=== PATIENT | female | born 1945 | race African-American/Black ===

== ENCOUNTER 2016-05-15 15:13 | Emergency (ER) | payer MEDICARE ==
[2016-05-15] MEDS ORDERED: Phenytoin Sodium 100 MG/2 ML VIAL ONE ×2 (15:47→15:49)
[2016-05-15 16:01] LABS: PTT 33.7 SEC (22.9-36.1); Prothrombin Time 24.5 SEC (12.0-14.7)
[2016-05-15 16:06] LABS: Glucose, Urine (Dipstick) 100 mg/dL (Negative); Ketone, Urine Negative (Negative); Nitrite Negative (Negative); Protein, Urine (Dipstick) 100 mg/dL (Neg-Trace)
[2016-05-15 16:07] LABS: Bacteria/HPF Rare-Few HPF (None Seen); Bilirubin Large (Negative); Blood, Urine Moderate (Negative); Squamous Epithelial 0-3 HPF (0-3); WBC/HPF 0-3 HPF (0-3); Yeast-All Forms Rare HPF (None Seen)
[2016-05-15 16:12] LABS: ALT (SGPT) 134 U/L (0-55); AST (SGOT) 215 U/L (5-34); Alkaline Phosphatase 1026 U/L (40-150); Anion Gap 20 mmol/L (10-20); BUN (Urea Nitrogen) 16 mg/dL (9.8-20.1); Bilirubin, Total 13.4 mg/dL (0.2-1.2); Calc. Creatinine Clearance 0 mL/min (70-130); Calcium 8.1 mg/dL (7.8-10.44); Carbon Dioxide 22 mmol/L (23-31); Chloride 96 mmol/L (98-107); Estimated GFR-MDRD 77; Globulin 3.3 g/dL (2.4-3.5); Protein, Total 6.3 g/dL (5.8-8.1)
[2016-05-15 16:14] LABS: Troponin I 0.024 ng/mL (< 0.028)
[2016-05-15 16:16] LABS: #Basophils 0.1 thou/uL (0.0-0.2); #Lymphocytes 0.5 thou/uL (1.20-3.40); #Monocytes 1.1 thou/uL (0.11-0.59); #Neutrophils 10.8 thou/uL (1.40-6.50); %Basophils 0.7 % (0.0-1.0); %Monocytes 8.5 % (0.0-10.0); Anisocytosis SLIGHT = 6-15 cells (100X) (0-5/hpf); Hematocrit 29.8 % (36.0-47.0); Hypochromia SLIGHT = 6-15 cells (100X) (0-5/hpf); Mean Platelet Volume 6.6 fL (7.4-10.4); Red Blood Cell (RBC) Count 3.49 mill/uL (4.20-5.40); Target Cells MODERATE= 6-15 cells (100X) (0-1/hpf); Tear Drops SLIGHT = 2-5 cells (100X) (0-1/hpf); White Blood Cell (WBC) Count 12.4 thou/uL (4.8-10.8)
[2016-05-15] MEDS ORDERED: Lorazepam 2 MG/ML VIAL ONE (16:23)
[2016-05-15] MEDS ORDERED: Fentanyl 100 MCG/2 ML VIAL ONE (17:03)
--- NOTE | 2016-05-15 18:23 | ERRECORD ---
[facility] EMERGENCY RECORD HPI SEIZURE (15:39 JPIP) CHIEF COMPLAINT: Patient presents for evaluation of seizure, Patient presents for evaluation of Family states patient yelled and became unresponsive with "jerking seizure like activity". HISTORIAN: History provided by patient's family, Additional history obtained from EMS. LOCATION: No localizing symptoms. QUALITY: Seizure quality described as grand-mal, single episode. TIME COURSE: Sudden onset of symptoms, just prior to arrival, Symptoms are improving. ASSOCIATED WITH: No associated alcohol use, No associated drug use, No associated fever, No associated headache, No associated trauma, +metastatic CA Patient and family states her oncologist explained there was nothing to do for her cancer and wanted to put her on hospice for end of life care. EXACERBATED BY: Patient's condition exacerbated by nothing. RELIEVED BY: Patient's condition relieved by time. E/M CAVEAT: Emergency room caveat invoked due to, postictal state. ROS (15:41 JPIP) CONSTITUTIONAL: Historian denies fever, reports lethargy, reports malaise. EYES: Historian denies eye pain. ENT: Historian denies sore throat. CARDIOVASCULAR: Historian denies chest pain. RESPIRATORY: Historian denies cough, denies shortness of breath. MUSCULOSKELETAL: Historian denies arthralgias, denies injury, denies myalgias. SKIN: Historian denies rash, denies skin changes, denies skin lesions. NEUROLOGIC: Historian reports confusion, post ictal. NOTES: All systems reviewed, negative except as described above. PAST MEDICAL HISTORY MEDICAL HISTORY: Notes: Scleral icterus, oxygen dependent, hyperlipidemia, HTN, osteoporosis, lung cancer that metastasized to liver. Verified on 05/15/16. (15:28 HASA) FEMALE SURGICAL HISTORY: right breast biopsy, appendectomy, tubal ligation. Verified on 05/15/16. (15:28 HASA) PSYCHIATRIC HISTORY: Notes: No psychiatric history. Verified on 05/15/16. (15:28 HASA) SOCIAL HISTORY: Social History includes Former smoker of cigarettes for >50 years. Denies alcohol use. Denies drug use. Verified on 05/15/16. (15:28 HASA) NOTES: Nursing records reviewed, Old chart reviewed, Medication list reviewed. (15:44 JPIP) KNOWN ALLERGIES &a-1R&a+25V*p+0X*d1416G*c202B*c15G*c2P*p-0X&a-25V&a+1R Name: Beatriz Garcia : 1945 F70 MedRec: [id number] AcctNum: [id number] Prepared: SunMay 15, 2016 18:11 by Interface Page 1 of 4 pMD [facility] EMERGENCY RECORD No Known Allergies CURRENT MEDICATIONS isosorbide mononitrate: TABLET, EXTENDED RELEASE 24 HR : Strength - 60 mg : ORAL Patient Dose: 60 mg Oral once a day. (15:22 HASA) simvastatin: TABLET : Strength - 10 mg : ORAL Patient Dose: 10 mg Oral once a day (in the evening). (15: HASA) aspirin: TABLET : Strength - 81 mg : ORAL Patient Dose: 81 mg Oral once a day. (15: HASA) Tylenol-Codeine #3: TABLET : Strength - 300 mg-30 mg : ORAL Patient Dose: 1 tab(s) Oral every 6 hours PRN. (15:22 HASA) Ventolin HFA: HFA AEROSOL WITH ADAPTER (GRAM) : Strength - 90 mcg : INHALATION Patient Dose: 2 puff(s) Inhaler every 4 hours prn. (15:22 HASA) triamterene-hydrochlorothiazid: CAPSULE : Strength - 37.5 mg-25 mg : ORAL Patient Dose: 1 tab(s) Oral once a day. (15:23 HASA) doxycycline hyclate: CAPSULE : Strength - 100 mg : ORAL Patient Dose: 100 mg Oral 2 times a day. (15:23 HASA) Atarax: TABLET : Strength - 25 mg : ORAL Patient Dose: 25 mg Oral 4 times a day. (15:24 HASA) methylPREDNISolone: TABLET : Strength - 4 mg : ORAL Patient Dose: 4 mg Oral once a day. (15:25 HASA) VITAL SIGNS VITAL SIGNS: BP: 140/70, Pulse: 133, Resp: 36, Temp: 99.5 (Oral), Pain: 0, O2 sat: 94 on Room Air, Time: 05/15/2016 15:17. (15:17 HASA) Pulse: 123, Resp: 17 (Non-Labored), O2 sat: 99 on 2L Oxygen, Time: 05/15/2016 15:28. (15:28 HASA) BP: 147/84, Pulse: 126, Resp: 16, Pain: utr, O2 sat: 98 on 2L Oxygen, Time: 05/15/2016 16:00. (16:00 AHOO) BP: 126/56, Pulse: 123, Resp: 17, Pain: 5, O2 sat: 100 on 2L Oxygen, Time: 05/15/2016 16:17. (16:17 HASA) BP: 114/64, Pulse: 124, Resp: 12, O2 sat: 100 on 2L Oxygen, Time: 05/15/2016 17:00. (17:00 HASA) BP: 112/61, Pulse: 124, Resp: 18 (Non-Labored), O2 sat: 100 on 2L Oxygen, Time: 05/15/2016 17:45. (17:45 SFER) PHYSICAL EXAM (15:42 JPIP) CONSTITUTIONAL: Vital signs reviewed, Patient afebrile, Pulse, tachycardic, Blood pressure normal, &a-1R&a+25V*p+0X*p0407I*c202B*c15G*c2P*p-0X&a-25V&a+1R Name: Beatriz Garcia : 1945 F70 MedRec: [id number] AcctNum: [id number] Prepared: SunMay 15, 2016 18:11 by Interface Page 2 of 4 pMD [facility] EMERGENCY RECORD Respiratory rate normal, Patient, oriented to person and place, patient appears to be post ictal. HEAD: Head exam included findings of head atraumatic, normocephalic. EYES: Eye exam included findings of eyelids normal to inspection, Conjunctiva normal, Sclera, icteric, no periorbital ecchymosis, no periorbital edema, no periorbital erythema. RESPIRATORY CHEST: Respiratory exam included findings of no respiratory distress, Breath sounds clear, No wheezing, No rales, No rhonchi, Breath sounds not absent, Breath sounds not diminished. CARDIOVASCULAR: Cardiovascular exam included findings of, rate tachycardic, rhythm regular. ABDOMEN FEMALE: Abdominal exam included findings of abdomen nontender, Liver normal, Spleen normal, no distension, no mass, no pulsatile masses, no peritoneal signs, no rigidity, no guarding, no rebound. BACK: no costovertebral angle tenderness. UPPER EXTREMITY: Upper extremity exam included findings of inspection normal, Range of motion normal. LOWER EXTREMITY: Lower extremity exam included findings of inspection normal, Range of motion normal. NEURO: [place] coma scale, Eye opening: (3) To speech, Verbal: (4) - Confused/disoriented, Motor: (6) - Obeys commands/Spontaneous, GCS Total: 13, Neuro exam findings include patient oriented to, person, place, no focal motor deficits. SKIN: Skin exam included findings of skin warm, dry, and normal in color. LYMPHATIC: Lymphatic exam included findings of cervical nodes normal, Submandibular normal. PSYCHIATRIC: Psychiatric exam included findings of patient oriented to, person, place. EKG INTERPRETATION (16:16 JPIP) MONITOR STRIP: helper maintenance cleaning strip interpreted by Emergency Department Physician, Monitor strip shows sinus tachycardia, with no ectopics. 12 LEAD EKG INTERPRETATION: 12 lead EKG interpreted by Emergency Department Physician at time of study, 12 lead EKG shows, sinus tachycardia, Rate (beats per minute): 125, with no ectopics, Conduction normal, ST segments normal, T waves normal, Clinical impression:, other dysrhythmia sinus tachycardia. RADIOLOGYINTERPRETATION (16:08 JPIP) HEAD: Head CT negative, without contrast, no bleed, no mass, no acute ischemic stroke, no acute changes. TACTICAL RESPONSE GROUP OFFICER: Preliminary review of CT scans by, Radiologist. MEDICATION ADMINISTRATION SUMMARY &a-1R&a+25V*p+0X*g3287W*c202B*c15G*c2P*p-0X&a-25V&a+1R Name: Jose Beatriz W : 1945 F70 MedRec: [id number] AcctNum: [id number] Prepared: SunMay 15, 2016 18:11 by Interface Page 3 of 4 pMD [facility] EMERGENCY RECORD Drug Name: fentaNYL (PF) injection, Dose Ordered: 100 mcg, Route: IV Push, Status: Given, Time: 17:07 05/15/2016, Drug Name: Ativan injection, Dose Ordered: 1 mg, Route: IV Push, Status: Given, Time: 16:28 05/15/2016, Drug Name: Normal Saline, Dose Ordered: 1000 mL/hr, Route: IV Fluid Infusion, Status: Given, Time: 15:30 05/15/2016, Detailed record available in Medication Service section. DOCTOR NOTES RE-EVALUATION: The patient's condition has improved, Patients mental status is improving with time. (15:48 JPIP) TEXT: Long discussion with patient and family regarding findings and possible metastasis to the brain. Patient has stated she does not want any more chemo. She states she is to see hospice tomorrow to begin care. Family present during discussions. All questions answered. Patient wants to go home, "till the end of my time on earth". Patient and family are aware she can come back to the ED anytime she feels she needs to. (17:38 JPIP) PROBLEM LIST No recorded problems DIAGNOSIS (17:45 JPIP) FINAL: PRIMARY: Febrile Seizure - simple, ADDITIONAL: end stage metastatic cancer, liver failure. PRESCRIPTION (17:44 JPIP) Ativan oral: TABLET : 1 mg : ORAL : Quantity: 1 Unit: tab(s) Route: ORAL Schedule: 2 times a day (before meals) Dispense: 30 May substitute. Refills: No Refills . NOTES: Take as needed for stress and anxiety No refills. DISPOSITION PATIENT: Disposition Type: Discharge, Disposition: *Discharge Home, Condition: Serious. (17:45 JPIP) Patient left the department. (18:09 HASA) Johnson: AHOO=ANTELMO Martin, August HASA=THOMAS Coates Lynne JPIP=DO Weldon Joseph SFER=CECELIA Egan, [place] &a-1R&a+25V*p+0X*y9677V*c202B*c15G*c2P*p-0X&a-25V&a+1R Name: Beatriz Garcia : 1945 F70 MedRec: [id number] AcctNum: [id number] Prepared: SunMay 15, 2016 18:11 by Interface Page 4 of 4 pMD MTDD
--- NOTE | 2016-05-15 18:27 | PICIS ---
[facility] EMERGENCY RECORD TRIAGE (SunMay 15, 2016 15:19 HASA) PATIENT: NAME: Beatriz Garcia, AGE: 70, GENDER: female, : Sun1945, TIME OF GREET: SunMay 15, 2016 15:13, PREFERRED LANGUAGE: Japanese, ETHNICITY: Not or , ECODE BILLING MAP: [facility], SSN: [id number], Zip Code: [address], KG WEIGHT: 51.71, PHONE: , , , PERSON ID: [id number], PAYMENT: [place] Medicare, PCP: MD Whitaker Kyle. (SunMay 15, 2016 15:19 HASA) COMPLAINT: AMS. (15:56 HASA) ADMISSION: URGENCY: 2 Emergent, ADMISSION SOURCE: Home, TRANSPORT: AMBULANCE - [facility], BED: TRIAGE. (SunMay 15, 2016 15:19 HASA) SIRS SCORING: Heart Rate 110-139 (2), Temp range 96.8-101.1 (0), respiratory rate 12-24 (0), Latest WBC 3-14.9 (0), Mental status altered: yes (1), Total SIRS Score 3. (15:28 HASA) TRIAGE SCREENING: Patient denies suicidal ideation, Patient denies presence of domestic violence. (15:28 HASA) PROVIDERS: TRIAGE NURSE: GN. Edin (SunMay 15, 2016 15:19 HASA) VITAL SIGNS: BP 140/70, Pulse 133, Resp 36, Temp 99.5, (Oral), Pain 0, O2 Sat 94, on Room Air, Time 05/15/2016 15:17. (15:17 HASA) KNOWN ALLERGIES No Known Allergies CURRENT MEDICATIONS isosorbide mononitrate: TABLET, EXTENDED RELEASE 24 HR : Strength - 60 mg : ORAL Patient Dose: 60 mg Oral once a day. (15:22 HASA) simvastatin: TABLET : Strength - 10 mg : ORAL Patient Dose: 10 mg Oral once a day (in the evening). (15:22 HASA) aspirin: TABLET : Strength - 81 mg : ORAL Patient Dose: 81 mg Oral once a day. (15:22 HASA) Tylenol-Codeine #3: TABLET : Strength - 300 mg-30 mg : ORAL Patient Dose: 1 tab(s) Oral every 6 hours PRN. (15:22 HASA) Ventolin HFA: HFA AEROSOL WITH ADAPTER (GRAM) : Strength - 90 mcg : INHALATION Patient Dose: 2 puff(s) Inhaler every 4 hours prn. (15:22 HASA) triamterene-hydrochlorothiazid: CAPSULE : Strength - 37.5 mg-25 mg : ORAL Patient Dose: 1 tab(s) Oral once a day. (15:23 HASA) doxycycline hyclate: CAPSULE : Strength - 100 mg : ORAL Patient Dose: 100 mg Oral 2 times a day. (15:23 HASA) &a-1R&a+25V*p+0X*b8577Q*c202B*c15G*c2P*p-0X&a-25V&a+1R Name: Beatriz Garcia : 1945 F70 MedRec: [id number] AcctNum: [id number] Prepared: SunMay 15, 2016 18:16 by Interface Page 1 of 15 pMD [facility] EMERGENCY RECORD Atarax: TABLET : Strength - 25 mg : ORAL Patient Dose: 25 mg Oral 4 times a day. (15:24 HASA) methylPREDNISolone: TABLET : Strength - 4 mg : ORAL Patient Dose: 4 mg Oral once a day. (15:25 HASA) VITAL SIGNS VITAL SIGNS: BP: 140/70, Pulse: 133, Resp: 36, Temp: 99.5 (Oral), Pain: 0, O2 sat: 94 on Room Air, Time: 05/15/2016 15:17. (15:17 HASA) Pulse: 123, Resp: 17 (Non-Labored), O2 sat: 99 on 2L Oxygen, Time: 05/15/2016 15:28. (15:28 HASA) BP: 147/84, Pulse: 126, Resp: 16, Pain: utr, O2 sat: 98 on 2L Oxygen, Time: 05/15/2016 16:00. (16:00 OO) BP: 126/56, Pulse: 123, Resp: 17, Pain: 5, O2 sat: 100 on 2L Oxygen, Time: 05/15/2016 16:17. (16:17 HASA) BP: 114/64, Pulse: 124, Resp: 12, O2 sat: 100 on 2L Oxygen, Time: 05/15/2016 17:00. (17:00 HASA) BP: 112/61, Pulse: 124, Resp: 18 (Non-Labored), O2 sat: 100 on 2L Oxygen, Time: 05/15/2016 17:45. (17:45 SFER) NURSING ASSESSMENT: FALL RISK (17:18 HASA) FALL RISK: Fall risk assessment findings include: History of falls (5), Bed rest greater than 2 days (5), Use of level of consciousness altering agents with mentation or cognitive changes (3), No change in blood pressure (0), Sensory deficits (1), Impaired mobility (3), Neurologic diagnosis (3), No elimination problems (0), Confusion (3), Total score 23, Fall risk. NURSING ASSESSMENT: NEURO (15:56 HASA) GCS: (6) Obeying command:, (4) Confused conversation:, (3) Eye opening in response to any speech, Result: 13. CONSTITUTIONAL: Patient arrives, via stretcher, via [facility], Unsteady gait, Lift to cart, History obtained from patient, Patient appears, in distress due to pain, restless, uncomfortable, Patient cooperative, Patient alert, Oriented to person, place and time, Skin warm, Skin dry, Skin normal in color, Mucous membranes pink, Mucous membranes moist, Patient is well-groomed, Patient complains of AMS, Patient arrives to the ER via EMS after seizure-like activity. Family states patient was sitting in chair and slumped over. Patient was unresponsive for an unknown amount of time and was having "jerking-like" motions. Denies pain. Patient appears to be in pain. Hx of lung cancer that has metastasized to liver. PAIN: Patient rates pain as 0 out of 10. NEURO: Speech, incoherent, slow, GCS:, Eye opening: (3) To speech, Verbal: (4) - Confused/disoriented, Motor: (6) - Obeys commands/Spontaneous, GCS Total: 13, Hand grasps equal, Upper extremity &a-1R&a+25V*p+0X*g4623R*c202B*c15G*c2P*p-0X&a-25V&a+1R Name: Beatriz Garcia : 1945 F70 MedRec: [id number] AcctNum: [id number] Prepared: SunMay 15, 2016 18:16 by Interface Page 2 of 15 pMD [facility] EMERGENCY RECORD strength, weak on the left, weak on the right, Lower extremity strength, weak on the left, weak on the right, Foot press equal, no associated fever, Associated with loss of consciousness, less than 1 minute, Associated with seizure, involving the entire body, witnessed, Associated with weakness. ENT: Ear assessment findings include ear normal to inspection, Nasal assessment findings include nose normal to inspection, Sinuses normal, Nasal mucosa normal, Mouth and throat assessment findings include mouth inspection normal, Uvula normal, Tonsils normal, Mucous membranes pink, and moist, Able to swallow, Patient, able to speak short phrases, Confused speech, no associated fever. SAFETY: Side rails up, Cart/Stretcher in lowest position, Family at bedside, Call light within reach, Hospital ID band on. NURSING ASSESSMENT: SKIN (17:19 HASA) SKIN: Skin assessment findings include skin warm, Skin dry, Skin normal in color, Inspection findings include: No pressure ulcer to the shoulder, Inspection findings include no pressure ulcer to the elbow, Inspection findings include no pressure ulcers to the hip, Inspection findings include no pressure ulcer to the sacrum, Inspection findings include no pressure ulcer to the heel, Inspection findings include no pressure ulcer, Inspection findings include no pressure ulcer. SAFETY: Side rails up, Cart/Stretcher in lowest position, Family at bedside, Call light within reach, Hospital ID band on. NURSING PROCEDURE: BEDSIDE SIRS TESTING (17:18 HASA) SCORES: Heart Rate 110-139 (2), Temp range 96.8-101.1 (0), respiratory rate 12-24 (0), Latest WBC 3-14.9 (0), Mental status altered: yes (1), Total SIRS Score 3, Infection or Suspected Infection: No. NURSING PROCEDURE: TURF FARMER (15:31 HASA) TURF FARMER: Patient placed on alarm security or surveillance monitor. FOLLOW-UP: After procedure, alarms set and on, After procedure, patient tolerating monitoring. SAFETY: Side rails up, Cart/Stretcher in lowest position, Family at bedside, Call light within reach, Hospital ID band on. NURSING PROCEDURE: DISCHARGE NOTE (18:02 HASA) DISCHARGE: Patient discharged to home, in a wheelchair, family driving, accompanied by other family member, Summary of Care printed/ provided, Patient requested and was provided an electronic copy of Discharge Instructions, Transition record given to patient, Discharge instructions given to patient, Prescriptions given and instructions on side effects given, Medication reconciliation form given, Above person(s) verbalized understanding of discharge &a-1R&a+25V*p+0X*d1716Z*c202B*c15G*c2P*p-0X&a-25V&a+1R Name: Beatriz Garcia : 1945 F70 MedRec: [id number] AcctNum: [id number] Prepared: SunMay 15, 2016 18:16 by Interface Page 3 of 15 D [facility] EMERGENCY RECORD instructions and follow-up care, Notes: Patient instructed on discharge instructions. Patient instructed on proper medication usage. Patient instructed to follow-up with PCP. SAFETY: Side rails up, Cart/Stretcher in lowest position, Family at bedside, Call light within reach, Hospital ID band on. NURSING PROCEDURE: EKG CHART (16:09 HASA) PATIENT IDENTIFIER: Patient actively involved in identification process, Patient's identity verified by patient stating name, Patient's identity verified by patient stating date. EKG: EKG indicated for Tachycardia/AMS, 12 lead EKG performed on the left chest, done by CECELIA Batista, first EKG. FOLLOW-UP: After procedure, EKG for interpretation given to Dr. WELDON. SAFETY: Side rails up, Cart/Stretcher in lowest position, Family at bedside, Call light within reach, Hospital ID band on. NURSING PROCEDURE: IV PATIENT IDENITIFIER: Patient actively involved in identification process, Patient's identity verified by patient stating name, Patient's identity verified by patient stating date, Patient's identity verified by hospital ID bracelet, Patient's identity verified by family member. (17:00 AHOO) IV SITE 1: IV therapy indicated for hydration, IV therapy indicated for medication administration, IV established, to the left antecubital, using a 20 gauge catheter, Saline lock established, Notes: ESTABLISHED SCHEME TECHNICIAN BY EMS. (15:20 HASA) IV therapy indicated for hydration, IV therapy indicated for medication administration, IV established, to the left wrist, using a 22 gauge catheter, in two attempts, Saline lock established, Flushed with normal saline (mls): 10, Notes: ESTABLISHED SCHEME TECHNICIAN BY AUGUST, APPAREL STOCK CHECKER. (16:55 HASA) IV therapy indicated for medication administration, IV established, to the left hand, using a 22 gauge catheter, in two attempts, Saline lock established, Flushed with normal saline (mls): 10ML. (17:00 AHOO) FOLLOW-UP SITE 1: After procedure, sterile transparent dressing applied. (15:20 HASA) After procedure, 2x2 dressing applied, IV discontinued, catheter intact, Notes: IV discontinued due to catheter being pinched. IV discontinued by August, APPAREL STOCK CHECKER. (15:20 HASA) NURSING PROCEDURE: NURSE NOTES NURSES NOTES: Pillow given to patient, Warm blanket given to patient, Patient re-positioned to semi-Webb's position, Patient re-positioned to right side lying position, with head of bed elevated, (degree) 15. (15:57 HASA) Notes: Patient resting in bed. Seizure precautions maintained. Patient moaning in pain. Medicating with fentanyl. Assisted patient in changing positions for comfortability. Lights off per request. &a-1R&a+25V*p+0X*u6300G*c202B*c15G*c2P*p-0X&a-25V&a+1R Name: Beatriz Garcia : 1945 F70 MedRec: [id number] AcctNum: [id number] Prepared: SunMay 15, 2016 18:16 by Interface Page 4 of 15 pMD [facility] EMERGENCY RECORD Family at bedside. (16:45 HASA) Notes: Seizure precautions initiated. Blankets placed along siderails. Monitors on. (15:28 HASA) NURSING PROCEDURE: OXYGEN THERAPY (15:20 HASA) PATIENT IDENTIFIER: Patient actively involved in identification process, Patient's identity verified by patient stating name, Patient's identity verified by patient stating date. OXYGEN THERAPY: Oxygen therapy indicated for desaturation, Oxygen saturation 92%, by adult/pediatric oxisensor, 2L oxygen given, via nasal cannula applied, Applied by CECELIA VITALE, via nasal cannula. FOLLOW-UP: After procedure, oxygen saturation 96%. SAFETY: Side rails up, Cart/Stretcher in lowest position, Family at bedside, Call light within reach, Hospital ID band on. NURSING PROCEDURE: POSITIONING (17:05 HASA) PATIENT IDENTIFIER: Patient actively involved in identification process, Patient's identity verified by patient stating name, Patient's identity verified by patient stating date. POSITIONING: Positioning indicated for patient with hypotension, Positioning indicated for Comfortability, Patient placed in dorsal recumbent position, Patient placed in semi-Webb's position, Patient placed in side lying position on the left, head of bed elevated, (degrees) 15. SAFETY: Side rails up, Cart/Stretcher in lowest position, Family at bedside, Call light within reach, Hospital ID band on. NURSING PROCEDURE: TRANSPORT TO TESTS PATIENT IDENTIFIER: Patient actively involved in identification process, Patient's identity verified by patient stating name, Patient's identity verified by patient stating date, Patient's identity verified by hospital ID bracelet, Patient's identity verified by family member. (15:52 AHOO) TRANSPORT TO TESTS: Patient transported to CT scan, via cart, Accompanied by x-ray reliability technician. (15:52 AHOO) FOLLOW-UP: After procedure, patient returned to emergency department. (16:00 AHOO) NURSING PROCEDURE: URINE COLLECTION (15:40 HASA) PATIENT IDENTIFIER: Patient actively involved in identification process, Patient's identity verified by patient stating name, Patient's identity verified by patient stating date. URINE COLLECTION FEMALE: Urine collected by straight cath, using an 8fr catheter kit, in one attempt, output amount (mL) 13, urine orange in color, and clear, Specimen collected, labeled in the presence of the patient and sent to lab, Specimen obtained for culture labeled in the presence of the patient and sent to lab. SAFETY: Side rails up, Cart/Stretcher in lowest position, Family &a-1R&a+25V*p+0X*z7839Q*c202B*c15G*c2P*p-0X&a-25V&a+1R Name: Jose, Beatriz W : 1945 F70 MedRec: [id number] AcctNum: [id number] Prepared: SunMay 15, 2016 18:16 by Interface Page 5 of 15 D [facility] EMERGENCY RECORD at bedside, Call light within reach, Hospital ID band on. ORDER DETAILS Order Name: Ammonia, Status: Active, Time: 16:19 05/15/2016, User: CLIFF, - Ordered for: DO Weldon Joseph, - Entered by: DO Weldon Joseph - SunMay 15, 2016 16:19, - Quantity: 1, Order Name: TURF FARMER ED, Status: Done, Time: 15:32 05/15/2016, User: SHENGA, - Ordered for: DO Weldon Joseph, - Entered by: THOMAS Coates Hannah - SunMay 15, 2016 15:31, - Quantity: 1, Order Name: Cardiac Profile w/CKMB & Troponin - I, Status: Active, Time: 15:30 05/15/2016, User: CLIFF, - Ordered for: DO Weldon Joseph, - Entered by: DO Weldon Joseph - SunMay 15, 2016 15:30, - Quantity: 1, Order Name: CATH STRAIGHT ED, Status: Done, Time: 15:44 05/15/2016, User: EDISON, - Ordered for: DO Weldon Joseph, - Entered by: THOMAS Coates Hannah - SunMay 15, 2016 15:34, - Quantity: 1, Order Name: CBC with Differential, Status: Active, Time: 15:26 05/15/2016, User: CLIFF, - Ordered for: DO Weldon Joseph, - Entered by: DO Weldon Joseph - SunMay 15, 2016 15:26, - Quantity: 1, Order Name: Comprehensive Metabolic Panel, Status: Active, Time: 15:26 05/15/2016, User: CLIFF, - Ordered for: DO Weldon Joseph, - Entered by: DO Weldon Joseph - SunMay 15, 2016 15:26, - Quantity: 1, Order Name: CT Brain WO Con, Status: Active, Time: 15:26 05/15/2016, User: CLIFF, - Ordered for: DO Weldon Joseph, - Entered by: DO Weldon Joseph - SunMay 15, 2016 15:26, - Quantity: 1, Order Name: EKG 12 Lead in Emergency Room, Status: Active, Time: 16:05 05/15/2016, User: CLIFF, - Ordered for: DO Weldon Joseph, - Entered by: DO Weldon Joseph - SunMay 15, 2016 16:05, - Quantity: 1, Order Name: ERRT Oxygen Usage ER, Status: Active, Time: 15:26 05/15/2016, User: CLIFF, - Ordered for: DO Weldon Joseph, - Entered by: DO Weldon Joseph - SunMay 15, 2016 15:26, - Quantity: 1, Order Name: ERRT Pulse Oximeter ER, Status: Active, Time: 15:26 &a-1R&a+25V*p+0X*j7584Z*c202B*c15G*c2P*p-0X&a-25V&a+1R Name: Beatriz Garcia : 1945 F70 MedRec: [id number] AcctNum: [id number] Prepared: SunMay 15, 2016 18:16 by Interface Page 6 of 15 pMD [facility] EMERGENCY RECORD 05/15/2016, User: CLIFF, - Ordered for: DO Weldon Joseph, - Entered by: DO Weldon Joseph - SunMay 15, 2016 15:26, - Quantity: 1, Order Name: Lactic Acid with repeat, Status: Canceled, Time: 17:20 05/15/2016, User: System, - Ordered for: DO Weldon Joseph, - Entered by: DO Weldon Joseph - SunMay 15, 2016 16:56, - Quantity: 1, Order Name: Protime with INR, Status: Active, Time: 15:30 05/15/2016, User: CLIFF, - Ordered for: DO Weldon Joseph, - Entered by: DO Weldon Joseph - SunMay 15, 2016 15:30, - Quantity: 1, Order Name: PTT, Status: Active, Time: 15:30 05/15/2016, User: CLIFF, - Ordered for: DO Weldon Joseph, - Entered by: DO Weldon Joseph - SunMay 15, 2016 15:30, - Quantity: 1, Order Name: SALINE LOCK, Status: Done, Time: 15:29 05/15/2016, User: EDISON, - Ordered for: DO Weldon Joseph, - Entered by: DO Weldon Joseph - SunMay 15, 2016 15:26, - Quantity: 1, Order Name: SEIZURE PRECAUTIONS ED, Status: Done, Time: 15:33 05/15/2016, User: EDISON, - Ordered for: DO Weldon Joseph, - Entered by: DO Weldon Joseph - SunMay 15, 2016 15:26, - Quantity: 1, Order Name: Urinalysis with Microscopic, Status: Active, Time: 15:26 05/15/2016, User: CLIFF, - Ordered for: DO Weldon Joseph, - Entered by: DO Weldon Joseph - SunMay 15, 2016 15:26, - Quantity: 1. MEDICATION ADMINISTRATION SUMMARY Drug Name: fentaNYL (PF) injection, Dose Ordered: 100 mcg, Route: IV Push, Status: Given, Time: 17:07 05/15/2016, Drug Name: Ativan injection, Dose Ordered: 1 mg, Route: IV Push, Status: Given, Time: 16:28 05/15/2016, Drug Name: Normal Saline, Dose Ordered: 1000 mL/hr, Route: IV Fluid Infusion, Status: Given, Time: 15:30 05/15/2016, Detailed record available in Medication Service section. MEDICATION SERVICE Ativan injection: Order: Ativan injection (lorazepam) - Dose: 1 mg : IV Push Schedule: Now Ordered by: Ky Weldon DO Entered by: Ky Weldon DO SunMay 15, 2016 16:19 , &a-1R&a+25V*p+0X*x8962E*c202B*c15G*c2P*p-0X&a-25V&a+1R Name: Frankie Garciavirginia Taylor : 1945 F70 MedRec: [id number] AcctNum: [id number] Prepared: SunMay 15, 2016 18:16 by Interface Page 7 of 15 pMD [facility] EMERGENCY RECORD Acknowledged by: THOMAS Jesus SunMay 15, 2016 16:21 Documented as given by: THOMAS Jesus SunMay 15, 2016 16:28 Patient, Medication, Dose, Route and Time verified prior to administration. Amount given: 1 MG, IV SITE #1 IVP, subsequent different medication, Slowly, Catheter placement confirmed via flush prior to administration, IV site without signs or symptoms of infiltration during medication administration, No swelling during administration, No drainage during administration, IV flushed after administration, Correct patient, time, route, dose and medication confirmed prior to administration, Patient advised of actions and side-effects prior to administration, Allergies confirmed and medications reviewed prior to administration, Patient in position of comfort, Side rails up, Cart in lowest position, Family at bedside. fentaNYL (PF) injection: Order: fentaNYL (PF) injection (fentanyl citrate/preservative free) - Dose: 100 mcg : IV Push Schedule: Now Ordered by: Ky Weldon DO Entered by: Ky Weldon DO SunMay 15, 2016 16:49 , Acknowledged by: THOMAS Jesus SunMay 15, 2016 17:03 Documented as given by: THOMAS Jesus SunMay 15, 2016 17:07 Patient, Medication, Dose, Route and Time verified prior to administration. Amount given: 100 MCG, IV SITE #1 IVP, subsequent different medication, Slowly, Catheter placement confirmed via flush prior to administration, IV site without signs or symptoms of infiltration during medication administration, No swelling during administration, No drainage during administration, IV flushed after administration, Correct patient, time, route, dose and medication confirmed prior to administration, Patient advised of actions and side-effects prior to administration, Allergies confirmed and medications reviewed prior to administration, Patient in position of comfort, Side rails up, Cart in lowest position, Family at bedside. Normal Saline: Order: Normal Saline (0.9 % sodium chloride) - Dose: 1000 mL/hr : IV Fluid Infusion Schedule: Now Ordered by: Ky Weldon DO Entered by: Ky Weldon DO SunMay 15, 2016 15:29 , Acknowledged by: THOMAS Jesus SunMay 15, 2016 15:30 Documented as given by: THOMAS Jesus SunMay 15, 2016 15:30 Patient, Medication, Dose, Route and Time verified prior to administration. Amount given: 1000 MG, IV SITE #1 IV fluids established for hydration, IV SITE #1 into left antecubital, IV SITE #1 1st bag hung, amount 1 Liter hung, IV SITE #1 bolus of 1000 ml established, via primary tubing, IV SITE #1 on IV pump, Catheter placement confirmed via flush prior to administration, IV site without signs or symptoms of infiltration during medication administration, No swelling during administration, No drainage during administration, IV flushed after &a-1R&a+25V*p+0X*j0385P*c202B*c15G*c2P*p-0X&a-25V&a+1R Name: Beatriz Garcia : 1945 F70 MedRec: [id number] AcctNum: [id number] Prepared: SunMay 15, 2016 18:16 by Interface Page 8 of 15 pMD [facility] EMERGENCY RECORD administration, Correct patient, time, route, dose and medication confirmed prior to administration, Patient advised of actions and side-effects prior to administration, Allergies confirmed and medications reviewed prior to administration, Patient in position of comfort, Side rails up, Cart in lowest position, Family at bedside. HPI SEIZURE (15:39 JPIP) CHIEF COMPLAINT: Patient presents for evaluation of seizure, Patient presents for evaluation of Family states patient yelled and became unresponsive with "jerking seizure like activity". HISTORIAN: History provided by patient's family, Additional history obtained from EMS. LOCATION: No localizing symptoms. QUALITY: Seizure quality described as grand-mal, single episode. TIME COURSE: Sudden onset of symptoms, just prior to arrival, Symptoms are improving. ASSOCIATED WITH: No associated alcohol use, No associated drug use, No associated fever, No associated headache, No associated trauma, +metastatic CA Patient and family states her oncologist explained there was nothing to do for her cancer and wanted to put her on hospice for end of life care. EXACERBATED BY: Patient's condition exacerbated by nothing. RELIEVED BY: Patient's condition relieved by time. E/M CAVEAT: Emergency room caveat invoked due to, postictal state. ROS (15:41 JPIP) CONSTITUTIONAL: Historian denies fever, reports lethargy, reports malaise. EYES: Historian denies eye pain. ENT: Historian denies sore throat. CARDIOVASCULAR: Historian denies chest pain. RESPIRATORY: Historian denies cough, denies shortness of breath. MUSCULOSKELETAL: Historian denies arthralgias, denies injury, denies myalgias. SKIN: Historian denies rash, denies skin changes, denies skin lesions. NEUROLOGIC: Historian reports confusion, post ictal. NOTES: All systems reviewed, negative except as described above. PAST MEDICAL HISTORY MEDICAL HISTORY: Notes: Scleral icterus, oxygen dependent, hyperlipidemia, HTN, osteoporosis, lung cancer that metastasized to liver. Verified on 05/15/16. (15:28 HASA) FEMALE SURGICAL HISTORY: right breast biopsy, appendectomy, tubal ligation. Verified on 05/15/16. (15:28 HASA) PSYCHIATRIC HISTORY: Notes: No psychiatric history. Verified on 05/15/16. (15:28 HASA) SOCIAL HISTORY: Social History includes Former smoker of &a-1R&a+25V*p+0X*d2900R*c202B*c15G*c2P*p-0X&a-25V&a+1R Name: Beatriz Garcia : 1945 F70 MedRec: [id number] AcctNum: [id number] Prepared: SunMay 15, 2016 18:16 by Interface Page 9 of 15 pMD [facility] EMERGENCY RECORD cigarettes for >50 years. Denies alcohol use. Denies drug use. Verified on 05/15/16. (15:28 HASA) NOTES: Nursing records reviewed, Old chart reviewed, Medication list reviewed. (15:44 JPIP) PHYSICAL EXAM (15:42 JPIP) CONSTITUTIONAL: Vital signs reviewed, Patient afebrile, Pulse, tachycardic, Blood pressure normal, Respiratory rate normal, Patient, oriented to person and place, patient appears to be post ictal. HEAD: Head exam included findings of head atraumatic, normocephalic. EYES: Eye exam included findings of eyelids normal to inspection, Conjunctiva normal, Sclera, icteric, no periorbital ecchymosis, no periorbital edema, no periorbital erythema. RESPIRATORY CHEST: Respiratory exam included findings of no respiratory distress, Breath sounds clear, No wheezing, No rales, No rhonchi, Breath sounds not absent, Breath sounds not diminished. CARDIOVASCULAR: Cardiovascular exam included findings of, rate tachycardic, rhythm regular. ABDOMEN FEMALE: Abdominal exam included findings of abdomen nontender, Liver normal, Spleen normal, no distension, no mass, no pulsatile masses, no peritoneal signs, no rigidity, no guarding, no rebound. BACK: no costovertebral angle tenderness. UPPER EXTREMITY: Upper extremity exam included findings of inspection normal, Range of motion normal. LOWER EXTREMITY: Lower extremity exam included findings of inspection normal, Range of motion normal. NEURO: Lloyd coma scale, Eye opening: (3) To speech, Verbal: (4) - Confused/disoriented, Motor: (6) - Obeys commands/Spontaneous, GCS Total: 13, Neuro exam findings include patient oriented to, person, place, no focal motor deficits. SKIN: Skin exam included findings of skin warm, dry, and normal in color. LYMPHATIC: Lymphatic exam included findings of cervical nodes normal, Submandibular normal. PSYCHIATRIC: Psychiatric exam included findings of patient oriented to, person, place. LAB INTERPRETATION INTERPRETATION: I reviewed the lab results, Chemistry abnormal, Sodium decreased, Chloride decreased, Glucose elevated, Bicarbonate decreased, Liver functions abnormal, Total bilirubin elevated, AST(SGOT) elevated, ALT(SGPT) elevated, Alk Phos elevated, PT abnormal, elevated, inr 2.2, PTT normal, Urinalysis &a-1R&a+25V*p+0X*l4766O*c202B*c15G*c2P*p-0X&a-25V&a+1R Name: Beatriz Garcia : 1945 F70 MedRec: [id number] AcctNum: [id number] Prepared: SunMay 15, 2016 18:16 by Interface Page 10 of 15 pMD [facility] EMERGENCY RECORD abnormal, positive for erythrocytes, positive for bilirubin. (16:17 JPIP) ammonia 31 nl. (16:56 JPIP) EVENTS TRANSFER: Triage to Emergency Triage. (15:19 HASA) Emergency Triage to Emergency Room -01. (15:30 AHOO) Removed from Emergency Emergency Room -01. (18:09 HASA) RADIOLOGYINTERPRETATION (16:08 JPIP) HEAD: Head CT negative, without contrast, no bleed, no mass, no acute ischemic stroke, no acute changes. DIESEL TRAILER MECHANIC: Preliminary review of CT scans by, Radiologist. EKG INTERPRETATION (16:16 JPIP) MONITOR STRIP: desk monitor strip interpreted by Emergency Department Physician, Monitor strip shows sinus tachycardia, with no ectopics. 12 LEAD EKG INTERPRETATION: 12 lead EKG interpreted by Emergency Department Physician at time of study, 12 lead EKG shows, sinus tachycardia, Rate (beats per minute): 125, with no ectopics, Conduction normal, ST segments normal, T waves normal, Clinical impression:, other dysrhythmia sinus tachycardia. O2SAT INTERPRETATION (15:26 JPIP) O2SAT: Continuous pulse oximetry, Oxygen saturation 94%, on room air, Oxygen saturation interpretation: Normal, No intervention required. DOCTOR NOTES RE-EVALUATION: The patient's condition has improved, Patients mental status is improving with time. (15:48 JPIP) TEXT: Long discussion with patient and family regarding findings and possible metastasis to the brain. Patient has stated she does not want any more chemo. She states she is to see hospice tomorrow to begin care. Family present during discussions. All questions answered. Patient wants to go home, "till the end of my time on earth". Patient and family are aware she can come back to the ED anytime she feels she needs to. (17:38 JPIP) PROBLEM LIST No recorded problems DIAGNOSIS (17:45 JPIP) FINAL: PRIMARY: Febrile Seizure - simple, ADDITIONAL: end stage metastatic cancer, liver failure. DISPOSITION PATIENT: Disposition Type: Discharge, Disposition: *Discharge Home, Condition: Serious. (17:45 JPIP) &a-1R&a+25V*p+0X*t2556N*c202B*c15G*c2P*p-0X&a-25V&a+1R Name: Beatriz Garcia : 1945 F70 MedRec: [id number] AcctNum: [id number] Prepared: SunMay 15, 2016 18:16 by Interface Page 11 of 15 D [facility] EMERGENCY RECORD Patient left the department. (18:09 HASA) INSTRUCTION (17:45 JPIP) DISCHARGE: SEIZURE, NEW ONSET, UNK CAUSE [ADULT]. [facility]UP[facility] [address] [place], [place] [id number], . SPECIAL: Call your Primary Care Physician in the morning for a follow up appointment Call your oncologist in the morning for follow up. Return to the Emergency Department for increased symptoms problems or concerns. PRESCRIPTION (17:44 JPIP) Ativan oral: TABLET : 1 mg : ORAL : Quantity: 1 Unit: tab(s) Route: ORAL Schedule: 2 times a day (before meals) Dispense: 30 May substitute. Refills: No Refills . NOTES: Take as needed for stress and anxiety No refills. IMAGING (16:32 AHOO) *EKG: Image captured from scanner. RESULTS LABORATORY: Urinalysis with Microscopic Collection DT: SunMay 15, 2016 15:52, Color Dark Yellow , Range (Yellow), Clarity Hazy , Range (Clear), Specific [place], Urine 1.025 , Range (1.005-1.030), pH, Urine 6.0 , Range (5.0-9.0), Leukocyte Negative , Range (Negative), Nitrite Negative , Range (Negative), *Protein, Urine (Dipstick) 100 - H mg/dL, Range (Neg-Trace), *Glucose, Urine (Dipstick) 100 - H mg/dL, Range (Negative), Ketone, Urine Negative mg/dL, Range (Negative), Urobilinogen 1.0 mg/dL, Range (0.2-1.0), *Bilirubin Large - H , Range (Negative), CAUTION Urine, Bilirubin has a high incidence of false positive results due to urine color, interference. Interpret results in conjunction with other clinical, findings. , *Blood, Urine Moderate - H , Range (Negative), *RBC/HPF 7-10 - H HPF, Range (0-3), WBC/HPF 0-3 HPF, Range (0-3), Squamous Epithelial 0-3 HPF, Range (0-3), Bacteria/HPF Rare-Few HPF, Range (None Seen), &a-1R&a+25V*p+0X*f9203A*c202B*c15G*c2P*p-0X&a-25V&a+1R Name: Beatriz Garcia Brandon : 1945 F70 MedRec: [id number] AcctNum: [id number] Prepared: SunMay 15, 2016 18:16 by Interface Page 12 of 15 pMD [facility] EMERGENCY RECORD Yeast-All Forms Rare HPF, Range (None Seen). (16:11 JPIP) PTT Collection DT: SunMay 15, 2016 15:52, See comment below , Anticoagulant? NONE Medical Necessity SUSPECT COAGULOPATHY , PTT 33.7 SEC, Range (22.9-36.1). (16:12 JPIP) Protime with INR Collection DT: SunMay 15, 2016 15:52, See comment below , Anticoagulant? NONE Medical Necessity SUSPECT COAGULOPATHY , *Prothrombin Time 24.5 - H SEC, Range (12.0-14.7), INR-International Normal Ratio 2.2 , ATTENTION: READ CAREFULLY , The, recommended therapeutic ranges for oral anticoagulant treatments are: , , Low Intensity: 1.5 - 2.0 Moderate Intensity: 2.0, - 3.0 High Intensity (1): 2.5 - 3.5 High, Intensity (2): 3.0 - 4.0 CRITICAL: >, 4.0 . (16:12 JPIP) Comprehensive Metabolic Panel Collection DT: SunMay 15, 2016 15:52, *Sodium 134 - L mmol/L, Range (136-145), Potassium 3.9 mmol/L, Range (3.5-5.1), *Chloride 96 - L mmol/L, Range (98-107), *Carbon Dioxide 22 - L mmol/L, Range (23-31), Anion Gap 20 mmol/L, Range (10-20), BUN (Urea Nitrogen) 16 mg/dL, Range (9.8-20.1), Creatinine 0.88 mg/dL, Range (0.6-1.1), Estimated GFR-MDRD 77 , Reference Range for Estimated GFR: Greater than 90, mL/min/1.73 m2 NOTE: The MDRD equation has not been validated for use, with the elderly (over 70 years of age), women, patients with, serious comorbid condition or persons with extremes of body size, muscle, mass, or nutritional status. , *Glucose 120 - H mg/dL, Range (80-115), Calcium 8.1 mg/dL, Range (7.8-10.44), *Bilirubin, Total 13.4 - H mg/dL, Range (0.2-1.2), Protein, Total 6.3 g/dL, Range (5.8-8.1), NOTE: Plasma values are generally 0.3 to 0.5 g/dL higher than serum values, due to the presence of fibrinogen. , *Albumin 3.0 - L g/dL, Range (3.4-4.8), Globulin 3.3 g/dL, Range (2.4-3.5), &a-1R&a+25V*p+0X*u8555R*c202B*c15G*c2P*p-0X&a-25V&a+1R Name: Beatriz Garcia : 1945 F70 MedRec: [id number] AcctNum: [id number] Prepared: SunMay 15, 2016 18:16 by Interface Page 13 of 15 pMD [facility] EMERGENCY RECORD *Alb/Glob Ratio 0.9 - L g/dL, Range (1.2-2.2), *Alkaline Phosphatase 1026 - H U/L, Range (40-150), *AST (SGOT) 215 - H U/L, Range (5-34), *ALT (SGPT) 134 - H U/L, Range (0-55). (16:15 [facility]) Comprehensive Metabolic Panel Collection DT: SunMay 15, 2016 15:52, *Sodium 134 - L mmol/L, Range (136-145), Potassium 3.9 mmol/L, Range (3.5-5.1), *Chloride 96 - L mmol/L, Range (98-107), *Carbon Dioxide 22 - L mmol/L, Range (23-31), Anion Gap 20 mmol/L, Range (10-20), BUN (Urea Nitrogen) 16 mg/dL, Range (9.8-20.1), Creatinine 0.88 mg/dL, Range (0.6-1.1), Estimated GFR-MDRD 77 , Reference Range for Estimated GFR: Greater than 90, mL/min/1.73 m2 NOTE: The MDRD equation has not been validated for use, with the elderly (over 70 years of age), women, patients with, serious comorbid condition or persons with extremes of body size, muscle, mass, or nutritional status. , *Glucose 120 - H mg/dL, Range (80-115), Calcium 8.1 mg/dL, Range (7.8-10.44), *Bilirubin, Total 13.4 - H mg/dL, Range (0.2-1.2), Protein, Total 6.3 g/dL, Range (5.8-8.1), NOTE: Plasma values are generally 0.3 to 0.5 g/dL higher than serum values, due to the presence of fibrinogen. , *Albumin 3.0 - L g/dL, Range (3.4-4.8), Globulin 3.3 g/dL, Range (2.4-3.5), *Alb/Glob Ratio 0.9 - L g/dL, Range (1.2-2.2), *Alkaline Phosphatase 1026 - H U/L, Range (40-150), *AST (SGOT) 215 - H U/L, Range (5-34), *ALT (SGPT) 134 - H U/L, Range (0-55). (16:15 [facility]) Cardiac Profile w/CKMB & TropI Collection DT: SunMay 15, 2016 15:52, CKMB 5.1 ng/mL, Range (0-6.6), Troponin I 0.024 ng/mL, Range (< 0.028), Reference Range , 0.00 - 0.028 ng/mL Negative 0.029 - 0.29 ng/mL , Indeterminate Greater or Equal to 0.3 ng/mL Strongly suggests MS , . (16:24 [facility]) CBC with Differential Collection DT: SunMay 15, 2016 15:52, *White Blood Cell (WBC) Count 12.4 - H thou/uL, Range (4.8-10.8), *Red Blood Cell (RBC) Count 3.49 - L mill/uL, Range (4.20-5.40), *Hemoglobin 9.3 - L g/dL, Range (12.0-16.0), *Hematocrit 29.8 - L %, Range (36.0-47.0), Mean Corpuscular Volume 85.4 fl, Range (81.0-99.0), &a-1R&a+25V*p+0X*h3434T*c202B*c15G*c2P*p-0X&a-25V&a+1R Name: Beatriz Garcia Brandon : 1945 F70 MedRec: [id number] AcctNum: [id number] Prepared: SunMay 15, 2016 18:16 by Interface Page 14 of 15 pMD [facility] EMERGENCY RECORD *Mean Corpuscular Hemoglobin 26.6 - L pg, Range (27.0-31.0), *Mean Corpuscular HGB CONC 31.2 - L g/dL, Range (32.0-36.0), *RBC Distribution Width 20.1 - H %, Range (11.5-14.5), Platelet Count 228 thou/uL, Range (130-400), *Mean Platelet Volume 6.6 - L fL, Range (7.4-10.4), *%Neutrophils 87.0 - H %, Range (42.0-75.0), *%Lymphocytes 3.8 - L %, Range (21.0-51.0), %Monocytes 8.5 %, Range (0.0-10.0), %Eosinophils 0.0 %, Range (0.0-10.0), %Basophils 0.7 %, Range (0.0-1.0), *#Neutrophils 10.8 - H thou/uL, Range (1.40-6.50), *#Lymphocytes 0.5 - L thou/uL, Range (1.20-3.40), *#Monocytes 1.1 - H thou/uL, Range (0.11-0.59), #Eosinphils 0.0 thou/uL, Range (0.0-0.7), #Basophils 0.1 thou/uL, Range (0.0-0.2), Anisocytosis SLIGHT = 6-15 cells (100X), Range (0-5/hpf), Hypochromia SLIGHT = 6-15 cells (100X), Range (0-5/hpf), Target Cells MODERATE= 6-15 cells (100X), Range (0-1/hpf), Tear Drops SLIGHT = 2-5 cells (100X), Range (0-1/hpf). (16:24 JPIP) Ammonia Collection DT: SunMay 15, 2016 16:45, Ammonia 31 umol/L, Range (18-72). (16:56 JPIP) Lactic Acid Collection DT: SunMay 15, 2016 16:45, *Lactic Acid 3.2 - H mmol/L, Range (0.5-2.2). (17:00 JPIP) Johnson: AHOO=ANTELMO Martin, August HASA=THOMAS Coates Hannah JPIP=DO Weldon Joseph SFER=CECELIA Egan, [place] &a-1R&a+25V*p+0X*a5839D*c202B*c15G*c2P*p-0X&a-25V&a+1R Name: Jose, Beatriz W : 1945 F70 MedRec: [id number] AcctNum: [id number] Prepared: SunMay 15, 2016 18:16 by Interface Page 15 of 15 pMD MTDD
--- NOTE | 2016-05-15 18:51 | CT ---
CT BRAIN WITHOUT CONTRAST 05/15/2016 HISTORY: A noncontrast CT was done for evaluation of a seizure. I understand there is a history o f metastatic disease. TECHNIQUE: This study was done without IV contrast. FINDINGS: No definite intracranial mass, edema, or bleeding is seen. A small, rounded density at the periphery of the left frontal region, on slice #12, could easily be volume averaging with the lawanda ne below. Given the clinical history, if suspicion of metastatic disease is high, a repeat scan wit h contrast or, better yet, an MRI of the brain, would be more sensitive in identifying small metasta ses. No bleeding is present. The ventricles are normal in size with no shift. There is no sign of an acute stroke. The calvarium appears intact with no sign of fracture or lytic lesion. The visib le paranasal sinuses and the mastoid air cells are clear. IMPRESSION No definite acute intracranial findings. See comments above. A few vague areas of asymmetry in the frontal lobes are present, but some are explainable by volume averaging with bone below. Consider MRI to further investigate these areas, given the patient's clinical history. POS: HOME
== END 2016-05-15 18:09 | disposition home or self-care (01) ==
LOC: BURERS 15:13
DX: K72.90 Hepatic failure, unspecified without coma (principal); C34.90 Malignant neoplasm of unspecified part of unspecified bronchus or lung; C78.7 Secondary malignant neoplasm of liver and intrahepatic bile duct; I10 Essential (primary) hypertension; M81.0 Age-related osteoporosis without current pathological fracture; E78.5 Hyperlipidemia, unspecified; Z87.891 Personal history of nicotine dependence; Z90.49 Acquired absence of other specified parts of digestive tract; Z98.51 Tubal ligation status; Z79.82 Long term (current) use of aspirin; Z79.899 Other long term (current) drug therapy
CPT/HCPCS: 36415; 51701; 70450; 80053; 81001; 82140; 82553; 83605; 84484; 85025; 85610; 85730; 93005; 94760; 96361; 96374; 96375; A4353; J1165; J2060; J3010